=== PATIENT | female | born 1990 | race American Indian/Alaskan Native ===

== ENCOUNTER 2016-12-19 16:36 | Emergency (ER) | payer SELFPAY ==
--- NOTE | 2016-12-20 05:54 | History and Physical Report ---
Medications and Allergies Allergies Allergy/AdvReac Type Severity Reaction Status Date / Time No Known Allergies Allergy Verified 02/14/16 09:45 Home Medications Medication Instructions Recorded Confirmed Last Taken Type Ibuprofen [Motrin 800 MG tab] 800 mg PO Q8HR PRN #30 tablet 02/16/16 Unknown Rx oxyCODONE /ACETAMINOPHEN [Percocet 1 - 2 tab PO Q4HR PRN #30 tab 02/16/16 Unknown Rx 5/325 mg] metroNIDAZOLE [Flagyl] 500 mg PO DAILY #4 tab 10/13/16 Unknown Rx
== END 2016-12-20 00:35 | disposition left against medical advice (07) ==
LOC: ED 16:36
DX: M25.572 Pain in left ankle and joints of left foot (principal); Z53.21 Procedure and treatment not carried out due to patient leaving prior to being seen by health care provider

== ENCOUNTER 2017-01-16 08:36 | Emergency (ER) | payer OTHER ==
[2017-01-16 09:10] VITALS: BP 123/71
[2017-01-16] MEDS ORDERED: NORCO 5/325 PO ONE (13:30)
--- NOTE | 2017-01-16 14:14 | XRay Report ---
RIGHT ANKLE, 3 views: History: Pain. Bone mineralization is normal. An oblique nondisplaced fracture is identified in the distal fibula. The remaining bony structures are intact. The ankle mortise is unremarkable. Mild soft tissue swelling. IMPRESSION: Fracture, distal fibula.
--- NOTE | 2017-01-16 14:56 | Emergency Department Report ---
ED Extremity Problem HPI - General Chief complaint: Extremity Injury, Lower Stated complaint: RT ANKLE PAIN Time Seen by Provider: 01/16/17 13:17 Source: patient Mode of arrival: Ambulatory Limitations: No Limitations - History of Present Illness Initial comments: PT states she was on vacation in [place] and she fell (12-17-16). PT states she was walking on a concrete path and she had to step over a small child. PT thinks the child grabbed her leg and tripped her. PT states she was seen in local ED and dx with fx, given crutches and placed in splint. PT states she took a copy of her XRs to [place] but she has been unable to have an appointment made. PT states she is a diabetic and the splint has been on for 1 month. PT states she is concerned she may develop a skin infection. PT states she is trying to clean between her toes but is unable to reach some areas. PT states her splint has gotten wet and she had to re-wrap it. MD Complaint: extremity pain Onset/Timin -: Sudden, month(s) Location: right, lower extremity Severity scale (0 -10): 6 Quality: aching, sharp (sharp pains with movement ) Consistency: constant Improves with: rest Worsens with: other (movement of upper leg, hurts R ankle ) Associated Symptoms: denies other symptoms - Related Data Previous Rx's Medication Instructions Recorded Last Taken Type Acetaminophen/Codeine [Tylenol #3] 1 tab PO Q6H PRN #12 tab 01/16/17 Unknown Rx Ibuprofen [Motrin] 600 mg PO Q8H PRN #15 tablet 01/16/17 Unknown Rx Allergies Allergy/AdvReac Type Severity Reaction Status Date / Time No Known Allergies Allergy Verified 02/14/16 09:45 ED Review of Systems ROS: Stated complaint: RT ANKLE PAIN Other details as noted in HPI Comment: All other systems reviewed and negative Constitutional: denies: chills, fever Genitourinary: denies: abnormal menses Musculoskeletal: as per HPI Skin: other (pt unsure if she is having symptoms due to splint in place ) ED Past Medical Hx - Past Medical History Previous Medical History?: Yes Hx Hypertension: No Hx CVA: No Hx Heart Attack/AMI: No Hx Congestive Heart Failure: No Hx Diabetes: Yes (insulin during the ) Hx Deep Vein Thrombosis: No Hx Pulmonary Embolism: No Hx GERD: No Hx Liver Disease: No Hx Renal Disease: No Hx Sickle Cell Disease: No Hx Arthritis: No Hx Headaches / Migraines: No Hx Seizures: No Hx Kidney Stones: No Hx Psychiatric Treatment: No Hx Asthma: No Hx COPD: No Hx Tuberculosis: No Hx Dementia: No Hx HIV: No Additional medical history: right ankle injury - Surgical History Past Surgical History?: Yes Hx Coronary Stent: No Hx Open Heart Surgery: No Hx Pacemaker: No Hx Internal Defibrillator: No Hx Cholecystectomy: No Hx Appendectomy: Yes (2003) Hx Breast Surgery: No Additional Surgical History: x2 - Social History Smoking Status: Former Smoker Substance Use Type: Alcohol, Prescribed - Medications Home Medications: Home Medications Medication Instructions Recorded Confirmed Last Taken Type Acetaminophen/Codeine [Tylenol #3] 1 tab PO Q6H PRN #12 tab 01/16/17 Unknown Rx Ibuprofen [Motrin] 600 mg PO Q8H PRN #15 tablet 01/16/17 Unknown Rx ED Physical Exam - General Limitations: No Limitations General appearance: alert, in no apparent distress - Head Head exam: Present: atraumatic, normocephalic, normal inspection - Eye Eye exam: Present: normal appearance, EOMI. Absent: conjunctival injection - ENT ENT exam: Present: normal exam, normal external ear exam - Neck Neck exam: Present: normal inspection, full ROM - Respiratory Respiratory exam: Present: normal lung sounds bilaterally. Absent: respiratory distress, chest wall tenderness - Cardiovascular Cardiovascular Exam: Present: regular rate, normal rhythm, normal heart sounds - GI/Abdominal GI/Abdominal exam: Present: soft. Absent: tenderness - Extremities Exam Extremities exam: Present: other (RLE with cadilliac splint in place ) - Back Exam Back exam: Present: normal inspection, full ROM - Neurological Exam Neurological exam: Present: alert, oriented X3 - Psychiatric Psychiatric exam: Present: normal affect, normal mood - Skin Skin exam: Present: warm, dry, intact, normal color (of visualized skin ) ED Course Vital Signs 01/16/17 09:06 Temperature 98.4 F Pulse Rate 91 H Respiratory 22 Rate Blood Pressure 123/71 O2 Sat by Pulse 96 Oximetry - Reevaluation(s) Reevaluation #1: 01/16/17 13:30 RLE splint removed. PT's skin intact, dry, flaky. No erythema. R ankle with swelling and tenderness to lateral malleolus. +2 DP pulse dianna. PT aware of plan of care. Reevaluation #2: 01/16/17 15:58 nursing staff applied splint. PT NVI. PT states pain improved. - Pulse Oximetry Interpretation Digit-Finger Initial Pulse Oximetry Readin Actions Taken: none ED Medical Decision Making - Radiology Data Radiology results: report reviewed, image reviewed R ankle - R fibula fx - Differential Diagnosis fracture, contusion, ulcer, wound Critical Care Time: No Critical care attestation.: If time is entered above; I have spent that time in minutes in the direct care of this critically ill patient, excluding procedure time. ED Disposition Clinical Impression: Right fibular fracture Qualifiers: Encounter type: initial encounter Fibula location: distal Fracture type: closed Fracture morphology: unspecified fracture morphology Qualified Code(s): S82.831A - Other fracture of upper and lower end of right fibula, initial encounter for closed fracture Disposition: DISCHARGED TO HOME OR SELFCARE Is pt being admited?: No Does the pt Need Aspirin: No Condition: Stable Instructions: Ankle Fracture (ED), Splint Care (ED) Additional Instructions: No driving or ETOH after taking Tylenol #3 Follow up with ORTHO Prescriptions: Acetaminophen/Codeine [Tylenol #3] 1 tab PO Q6H PRN #12 tab PRN Reason: Pain , Severe (7-10) Ibuprofen [Motrin] 600 mg PO Q8H PRN #15 tablet PRN Reason: Pain Referrals: BLANCA MONTENEGRO MD [Primary Care Provider] - 3-5 Days CHERYL LEVI MD [Staff Physician] - 3-5 Days
== END 2017-01-16 16:00 | disposition home or self-care (01) ==
LOC: ED 08:36
DX: S82.831A Other fracture of upper and lower end of right fibula, initial encounter for closed fracture (principal); E11.9 Type 2 diabetes mellitus without complications; Z90.49 Acquired absence of other specified parts of digestive tract; Z87.891 Personal history of nicotine dependence; W18.39XA Other fall on same level, initial encounter; Y93.89 Activity, other specified; Y99.8 Other external cause status; Y92.89 Other specified places as the place of occurrence of the external cause

== ENCOUNTER 2017-02-13 17:55 | Emergency (ER) | payer SELFPAY ==
--- NOTE | 2017-02-13 18:19 | Emergency Department Report ---
Chief Complaint: Extremity Injury, Lower Stated Complaint: LEG PAIN,STITCH REMOVAL Time Seen by Provider: 02/13/17 18:13 - HPI History of Present Illness: PT c/o R leg pain since fall 12-17-16. PT states she was seen in this ED 1 month ago for same. PT states she could not follow up because the orthopedic MD she was referred to did not take her insurance. Also, pt would like stitches removed from L knee - ROS Review of Systems: + wound to L knee + R ankle pain - Exam Vital Signs: Vital Signs 02/13/17 18:10 Temperature 98.8 F Pulse Rate 85 Respiratory 20 Rate Blood Pressure 119/77 Physical Exam: pt with wound to L knee, [address], it appears that 2 sutures have pulled thru, small wound dehiscence. PT with splint to RLE MSE screening note: Focused history and physical exam performed. Due to findings the following was ordered: ED Disposition for MSE Condition: Stable
--- NOTE | 2017-02-13 20:36 | Emergency Department Report ---
ED General Adult HPI - General Chief complaint: Extremity Injury, Lower Stated complaint: LEG PAIN,STITCH REMOVAL Time Seen by Provider: 02/13/17 18:13 Source: patient Mode of arrival: Wheelchair Limitations: No Limitations - History of Present Illness Initial comments: This is a 26-year-old female well-nourished with nontoxic or ill in appearance but presents for evaluation of right leg status post fracture of the right fibula that has occurred on 12/17/16. Patient is currently here for a suture removal as well of the left upper knee region. Patient stated was at [place] and received 3 sutures from a fall. Patient was here on 01/16/[address] Foley for left leg pain and received a cast and a right fibula. She stated that she is unable to follow-up with the orthopedic doctor that was referred to the patient due to insurance purposes. Patient stated has Medicaid. Patient denies any numbness, tingling, pain, fever, chills, headache, stiff neck, blurry vision, chest pain, short of breath, unable to the extremity, joint swelling or joint pain. Patient states she just wants a referral to a orthopedic doctor that takes her insurance. Patient denies any allergies. Patient denies taking any antibiotic for the suturing of the left knee. Patient stated history of diabetes. MD Complaint: Suture removal and ortho referral -: Gradual Location: lower extremity Radiation: non-radiation Severity scale (0 -10): 0 Improves with: none Worsens with: none Associated Symptoms: denies other symptoms. denies: confusion, chest pain, cough, diaphoresis, fever/chills, headaches, loss of appetite, malaise, nausea/ vomiting, rash, seizure, shortness of breath, syncope, weakness Treatments Prior to Arrival: none - Related Data Previous Rx's Medication Instructions Recorded Last Taken Type Acetaminophen/Codeine [Tylenol #3] 1 tab PO Q6H PRN #12 tab 01/16/17 Unknown Rx Ibuprofen [Motrin] 600 mg PO Q8H PRN #15 tablet 01/16/17 Unknown Rx Cephalexin [Keflex] 500 mg PO Q8HR 5 Days 02/13/17 Unknown Rx Allergies Allergy/AdvReac Type Severity Reaction Status Date / Time No Known Allergies Allergy Verified 02/14/16 09:45 ED Review of Systems ROS: Stated complaint: LEG PAIN,STITCH REMOVAL Other details as noted in HPI Constitutional: denies: chills, fever Eyes: denies: eye pain, eye discharge, vision change ENT: denies: ear pain, throat pain Respiratory: denies: cough, shortness of breath, wheezing Cardiovascular: denies: chest pain, palpitations Endocrine: no symptoms reported Gastrointestinal: denies: abdominal pain, nausea, diarrhea Genitourinary: denies: urgency, dysuria, discharge Musculoskeletal: denies: back pain, joint swelling, arthralgia Skin: denies: rash, lesions Neurological: denies: headache, weakness, paresthesias Psychiatric: denies: anxiety, depression Hematological/Lymphatic: denies: easy bleeding, easy bruising ED Past Medical Hx - Past Medical History Hx Hypertension: No Hx CVA: No Hx Heart Attack/AMI: No Hx Congestive Heart Failure: No Hx Diabetes: Yes (insulin during the ) Hx Deep Vein Thrombosis: No Hx Pulmonary Embolism: No Hx GERD: No Hx Liver Disease: No Hx Renal Disease: No Hx Sickle Cell Disease: No Hx Arthritis: No Hx Headaches / Migraines: No Hx Seizures: No Hx Kidney Stones: No Hx Psychiatric Treatment: No Hx Asthma: No Hx COPD: No Hx Tuberculosis: No Hx Dementia: No Hx HIV: No Additional medical history: right ankle injury - Surgical History Hx Coronary Stent: No Hx Open Heart Surgery: No Hx Pacemaker: No Hx Internal Defibrillator: No Hx Cholecystectomy: No Hx Appendectomy: Yes (2003) Hx Breast Surgery: No Additional Surgical History: x2 - Social History Smoking Status: Never Smoker Substance Use Type: None - Medications Home Medications: Home Medications Medication Instructions Recorded Confirmed Last Taken Type Acetaminophen/Codeine [Tylenol #3] 1 tab PO Q6H PRN #12 tab 01/16/17 Unknown Rx Ibuprofen [Motrin] 600 mg PO Q8H PRN #15 tablet 01/16/17 Unknown Rx Cephalexin [Keflex] 500 mg PO Q8HR 5 Days 02/13/17 Unknown Rx ED Physical Exam - General Limitations: No Limitations General appearance: alert, in no apparent distress - Head Head exam: Present: atraumatic, normocephalic - Eye Eye exam: Present: normal appearance, PERRL, EOMI. Absent: scleral icterus, conjunctival injection, nystagmus, periorbital swelling, periorbital tenderness - ENT ENT exam: Present: normal exam, normal orophraynx, mucous membranes moist, TM's normal bilaterally, normal external ear exam - Neck Neck exam: Present: normal inspection, full ROM. Absent: tenderness, meningismus, lymphadenopathy, thyromegaly - Respiratory Respiratory exam: Present: normal lung sounds bilaterally. Absent: respiratory distress, wheezes, rales, rhonchi, stridor, chest wall tenderness, accessory muscle use, decreased breath sounds, prolonged expiratory - Cardiovascular Cardiovascular Exam: Present: regular rate, normal rhythm, normal heart sounds. Absent: bradycardia, tachycardia, irregular rhythm, systolic murmur, diastolic murmur, rubs, gallop - GI/Abdominal GI/Abdominal exam: Present: soft, normal bowel sounds. Absent: distended, tenderness, guarding, rebound, rigid, diminished bowel sounds - Extremities Exam Extremities exam: Present: normal inspection, full ROM, normal capillary refill. Absent: tenderness, pedal edema, joint swelling, calf tenderness - Expanded Lower Extremity Exam Right Hip exam: Present: full ROM, tenderness. Absent: swelling, abrasion, laceration , ecchymosis, deformity, crepidus, dislocation, erythema, external rotation, internal rotation, shortening, pelvic stability Upper Leg exam: Present: normal inspection, full ROM. Absent: tenderness, swelling, abrasion, laceration, ecchymosis, deformity, crepidus, dislocation, erythema Knee exam: Present: normal inspection, full ROM, full knee extension. Absent: tenderness, swelling, abrasion, laceration, ecchymosis, deformity, crepidus, dislocation, erythema, effusion, pain w/ pronation/supination, posterior draw sign, pain/laxity with valgus, pain/laxity with varus Lower Leg exam: Present: normal inspection, full ROM. Absent: tenderness, swelling, abrasion, laceration, ecchymosis, deformity, crepidus, dislocation, erythema Ankle exam: Present: normal inspection (unable to fully examine her ankle due to cast.) Foot/Toe exam: Present: normal inspection, full ROM (warm to touch. Able to move toes. Normal capillary refill. No swelling. No numbness or tingling. able to feel sensation..). Absent: tenderness, swelling, abrasion, laceration, ecchymosis, deformity, crepidus, dislocation, erythema, amputation, puncture wound, foreign body, calcaneal tenderness, tenderness at base of 5th metatarsal , nail avulsion, subungual hematoma Neuro vascular tendon exam: Present: no vascular compromise Gait: Positive: observed and normal Left Hip exam: Present: normal inspection, full ROM. Absent: tenderness, swelling Upper Leg exam: Present: normal inspection, full ROM. Absent: tenderness, swelling Knee exam: Present: normal inspection, full ROM, laceration, full knee extension (No redness. No pus. 3 cm semi closed laceration. Pt stated her sutures opened. Not warm to touch. No signs of cellulities. No fluctuance.). Absent: tenderness, swelling, abrasion, ecchymosis, deformity, crepidus, dislocation, erythema, effusion, pain w/ pronation/supination, posterior draw sign, pain/laxity with valgus, pain/laxity with varus Lower Leg exam: Present: normal inspection, full ROM. Absent: tenderness, swelling, abrasion, laceration, ecchymosis, deformity, crepidus, dislocation, erythema, palpable cord, Armando's sign Ankle exam: Present: normal inspection, full ROM. Absent: tenderness, swelling , abrasion, laceration, ecchymosis, deformity, crepidus, dislocation, erythema, anterior draw sign Foot/Toe exam: Present: normal inspection, full ROM. Absent: tenderness, swelling, abrasion, laceration, ecchymosis, deformity, crepidus, dislocation, erythema, amputation, puncture wound, foreign body, calcaneal tenderness, tenderness at base of 5th metatarsal, nail avulsion, subungual hematoma Neuro vascular tendon exam: Present: no vascular compromise Gait: Positive: observed and normal 1 - 3 cm semi-open laceration with sutures present. - Back Exam Back exam: Present: normal inspection, full ROM. Absent: tenderness, CVA tenderness (R), CVA tenderness (L), muscle spasm, paraspinal tenderness, vertebral tenderness, rash noted - Neurological Exam Neurological exam: Present: alert, oriented X3, CN II-XII intact, normal gait - Psychiatric Psychiatric exam: Present: normal affect, normal mood - Skin Skin exam: Present: warm, dry, intact, normal color. Absent: rash ED Course Vital Signs 02/13/17 18:10 Temperature 98.8 F Pulse Rate 85 Respiratory 20 Rate Blood Pressure 119/77 - Reevaluation(s) Reevaluation #1: 02/13/17 20:41 Patient is resting comfortably with male friend. No signs of distress. ED Medical Decision Making - Medical Decision Making Ed course: This is a 26-year-old female that presents with suture removal and ortho referral 1- after my physical exam, the laceration is 3 cm that is half open. Patient stated the sutures opened 3 days after the suturing has been performed. Patient denies any pus, drainage. Due to patient having history of diabetes patient received Keflex at the time of discharge and was instructed to finish full course of antibiotics to prevent infection. 2- I used a permanent marker and outlined the laceration and instructed patient to observe symptoms and signs of increased redness, pus, drainage, swelling past the permanent marker and to return to emergency room as soon as possible if the symptoms are present. 3- patient was referred to Dr. Gage for follow-up in 24 hours. 4- at time time of discharge, the patient does not seem toxic or ill in appearance. No acute signs of distress noted. Patient agrees to discharge treatment plan of care. No further questions noted by the patient. 5- I removed a total of 3 sutures from left knee. Patient tolerated well with no signs of distress. Critical care attestation.: If time is entered above; I have spent that time in minutes in the direct care of this critically ill patient, excluding procedure time. ED Disposition Clinical Impression: Referral needed, Visit for suture removal Disposition: [id number] TO HOME OR SELFCARE Is pt being admited?: No Does the pt Need Aspirin: No Condition: Stable Instructions: Cast Care (ED), Suture Removal (ED), Cephalexin (By mouth) Additional Instructions: Observe symptoms and signs of increased redness, pus, drainage, swelling past the permanent marker and to return to emergency room as soon as possible if the symptoms are present. Take Keflex as prescribed and finish course of antibiotics. Prescriptions: Cephalexin [Keflex] 500 mg PO Q8HR 5 Days Referrals: PRIMARY CARE, [Primary Care Provider] - 3-5 Days ELIEL MUÑOZ JR, MD [Staff Physician] - 3-5 Days [facility] [Outside] - 3-5 Days [facility] [Outside] - 3-5 Days AQUILINO GAGE MD [Staff Physician] - 24 Hours
[2017-02-13 22:32] VITALS: BP 132/88
== END 2017-02-13 22:20 | disposition home or self-care (01) ==
LOC: ED 17:55
DX: M79.605 Pain in left leg (principal)
CPT/HCPCS: 99282

== ENCOUNTER 2017-05-01 21:57 | Emergency (ER) | payer SELFPAY ==
[2017-05-01 22:24] VITALS: BP 124/72
[2017-05-01 23:04] LABS: Basophils % (Auto) 0.2 % (0.0-1.8); Hematocrit 41.5 % (30.3-42.9); Hemoglobin 13.9 gm/dl (10.1-14.3); Mean Corpuscular HGB Conc 34 % (30-34); Mean Corpuscular Hemoglobin 32 pg (28-32); Mean Corpuscular Volume 95 fl (79-97); Platelet Count 250 K/mm3 (140-440); Red Blood Count 4.34 M/mm3 (3.65-5.03); White Blood Count 12.2 K/mm3 (4.5-11.0)
[2017-05-01 23:14] LABS: Alanine Aminotransferase 9 units/L (7-56); Albumin 4.5 g/dL (3.9-5); Albumin/Globulin Ratio 1.2 %; Alkaline Phosphatase 61 units/L (35-129); Anion Gap 24 mmol/L; Blood Urea Nitrogen 6 mg/dL (7-17); Calcium 9.5 mg/dL (8.4-10.2); Carbon Dioxide 20 mmol/L (22-30); Chloride 99.5 mmol/L (98-107); Glucose 139 mg/dL (65-100); Lipase 35 units/L (13-60); Sodium 141 mmol/L (137-145); Total Protein 8.4 g/dL (6.3-8.2)
[2017-05-01 23:18] LABS: Potassium 2.9 mmol/L (3.6-5.0)
[2017-05-01 23:49] LABS: Bilirubin,Urine NEG (Negative); Blood,Urine NEG (Negative); Ketones,Urine 80 mg/dL (Negative); Leukocyte Esterase,Urine MOD (Negative); Mucus,Urine 3+ /HPF; Nitrite,Urine NEG (Negative)
--- NOTE | 2017-05-04 00:39 | ED Elopement Review ---
ED Pt Elopement review - Results review Lab results: Laboratory Tests 05/01/17 05/01/17 05/01/17 22:37 22:37 22:43 WBC 12.2 H RBC 4.34 Hgb 13.9 Hct 41.5 MCV 95 MCH 32 MCHC 34 RDW 14.0 Plt Count 250 Lymph % (Auto) 19.2 Harmon % (Auto) 4.9 Eos % (Auto) 0.0 Baso % (Auto) 0.2 Lymph # 2.3 Harmon # 0.6 Eos # 0.0 Baso # 0.0 Seg Neutrophils % 75.7 H Seg Neutrophils # 9.3 H Sodium 141 Potassium 2.9 L* Chloride 99.5 Carbon Dioxide 20 L Anion Gap 24 BUN 6 L Creatinine 0.6 L Estimated GFR > 60 BUN/Creatinine Ratio 10.00 Glucose 139 H Calcium 9.5 Total Bilirubin 0.70 AST 16 ALT 9 Alkaline Phosphatase 61 Total Protein 8.4 H Albumin 4.5 Albumin/Globulin Ratio 1.2 Lipase 35 Urine Color Bebe Urine Turbidity Clear Urine pH 8.0 H Ur Specific [place] 1.028 Urine Protein 100 mg/dl Urine Glucose (UA) Neg Urine Ketones 80 Urine Blood Neg Urine Nitrite Neg Urine Bilirubin Neg Urine Urobilinogen 2.0 Ur Leukocyte Esterase Mod Urine WBC (Auto) 38.0 H Urine RBC (Auto) 9.0 U Epithel Cells (Auto) 37.0 H Urine Mucus 3+ - Call Back decision Pt Call Back Decision: Pt to F/U with PMD (patient should follow up with primary physician for potassium repletion and further evaluation)
== END 2017-05-02 00:15 | disposition left against medical advice (07) ==
LOC: ED 21:57
DX: R11.2 Nausea with vomiting, unspecified (principal); R10.9 Unspecified abdominal pain; Z53.21 Procedure and treatment not carried out due to patient leaving prior to being seen by health care provider
CPT/HCPCS: 36415; 80053; 81001; 83690; 85025

== ENCOUNTER 2017-05-02 11:31 | Emergency (ER) | payer SELFPAY ==
[2017-05-02 12:29] VITALS: BP 108/66
[2017-05-02 12:56] LABS: Basophils % (Auto) 0.1 % (0.0-1.8); Hematocrit 41.6 % (30.3-42.9); Hemoglobin 13.8 gm/dl (10.1-14.3); Mean Corpuscular HGB Conc 33 % (30-34); Mean Corpuscular Hemoglobin 32 pg (28-32); Mean Corpuscular Volume 95 fl (79-97); Platelet Count 255 K/mm3 (140-440); Red Blood Count 4.38 M/mm3 (3.65-5.03); White Blood Count 11.5 K/mm3 (4.5-11.0)
[2017-05-02 13:10] LABS: Alanine Aminotransferase 13 units/L (7-56); Albumin 4.7 g/dL (3.9-5); Albumin/Globulin Ratio 1.3 %; Alkaline Phosphatase 61 units/L (35-129); Anion Gap 19 mmol/L; Blood Urea Nitrogen 6 mg/dL (7-17); Calcium 9.5 mg/dL (8.4-10.2); Carbon Dioxide 24 mmol/L (22-30); Chloride 103.6 mmol/L (98-107); Glucose 119 mg/dL (65-100); Lipase 20 units/L (13-60); Potassium 3.6 mmol/L (3.6-5.0); Sodium 143 mmol/L (137-145); Total Protein 8.4 g/dL (6.3-8.2)
== END 2017-05-02 15:06 | disposition left against medical advice (07) ==
LOC: ED 11:31
DX: R10.9 Unspecified abdominal pain (principal); Z53.21 Procedure and treatment not carried out due to patient leaving prior to being seen by health care provider
CPT/HCPCS: 36415; 80053; 83690; 84703; 85025